=== PATIENT | female | born 1985 | race African-American/Black ===

== ENCOUNTER 2024-10-22 07:49 | Emergency (ER) | payer MEDICAID ==
[~2024-10-22] VITALS: Ht 165.1 cm; Wt 136.0 kg
[~2024-10-22 07:49] MED LIST: FERR1TAB25 PO; IBUP-779 PO; LABE200T9 PO; MULT-1116 PO
[2024-10-22 07:52] VITALS: O2SAT 99
[2024-10-22] MEDS: OXYCODONE HCL/ACETAMINOPHEN 5/325MG TABLET PO ONE (08:42)
[2024-10-22] MEDS ORDERED: TOPUD PO (10:09)
[2024-10-22 10:47] LABS: BASOPHILS % 1.2 % (0.0-2.0); DIFFERENTIAL COMMENT 0; EOSINOPHILS % 3.5 % (0.0-5.0); HEMATOCRIT. 37.8 % (36.0-48.0); HEMOGLOBIN. 11.9 g/dL (12.0-16.0); LYMPHOCYTES % 38.8 % (20.0-50.0); MEAN CORPUSCULAR HEMOGLOBIN 24.5 pg (28.0-32.0); MEAN CORPUSCULAR HGB CONC 31.4 g/dL (31.0-37.0); MEAN CORPUSCULAR VOLUME 78.3 fL (81.0-99.0); MONOCYTES % 7.1 % (2.0-8.0); NEUTROPHILS % 49.4 % (40.0-76.0); PLATELET 260 x1000/uL (130-400); RED BLOOD CELL COUNT 4.83 mill/uL (4.2-5.4); RED CELL DISTRIBUTION WIDTH 14.3 % (11.6-14.6); WHITE BLOOD COUNT 5.9 x1000/uL (4.5-11.0)
[2024-10-22 10:55] LABS: CHLORIDE 105 mEq/L (98-107); SODIUM 139 mEq/L (136-145)
[2024-10-22 10:56] LABS: CARBON DIOXIDE 30 mEq/L (21-32)
[2024-10-22 10:57] LABS: CALCIUM 8.8 mg/dL (8.7-10.4)
[2024-10-22 11:01] LABS: CREATININE 0.6 mg/dL (0.6-1.0); GLUCOSE 100 mg/dL (70-105); UREA NITROGEN BLOOD 10 mg/dL (9-23)
[2024-10-22] MEDS ORDERED: MAGNESIUM/ALUMINUM HYDROXIDE/SIMETHICONE 30ML UDC PO PRN (14:00)
[2024-10-22] MEDS ORDERED: CLONIDINE 0.1MG TABLET PO PRN (14:00)
[2024-10-22] MEDS ORDERED: ACETAMINOPHEN 325MG TABLET PO PRN ×2 (14:00)
[2024-10-22] MEDS ORDERED: ONDANSETRON HCL 4MG/2ML INJ IV PRN (14:00)
[2024-10-22] MEDS ORDERED: IBUPROFEN 400MG TABLET PO PRN (14:00)
[2024-10-22] MEDS ORDERED: DOCUSATE SODIUM 100MG CAPSULE PO PRN (14:00)
[2024-10-22] MEDS ORDERED: IPRATROPIUM/ALBUTEROL 0.5-3(2.5)MG/3ML NEB HHN PRN (14:00)
[2024-10-22] MEDS ORDERED: GUAIFENESIN 200MG/10ML SUGAR FREE UDC PO PRN (14:00)
[2024-10-22] MEDS ORDERED: ENOXAPARIN 30MG/0.3ML SYR SUBCUT SCH ×2 (15:00→18:00)
[2024-10-22 16:39] VITALS: BP 137/73; PULSE 61; RESP 16; TEMP 36.89184; O2SAT 100
[2024-10-22 16:55] LABS: CLARITY URINE CLEAR (CLEAR); COLOR URINE YELLOW (YELLOW); GLUCOSE URINE NEGATIVE (NEGATIVE); KETONES URINE NEGATIVE (NEGATIVE); LEUKOCYTE ESTERASE URINE NEGATIVE (NEGATIVE); NITRITE URINE NEGATIVE (NEGATIVE); OCCULT BLOOD URINE NEGATIVE (NEGATIVE); PH URINE 6.5 (4.5-8.0); PROTEIN URINE NEGATIVE (NEGATIVE); SPECIFIC GRAVITY URINE 1.003 (1.005-1.030); UROBILINOGEN URINE 0.2 E.U./dL (0.2-1.0)
[2024-10-22] MEDS ORDERED: FERROUS SULFATE 325MG TABLET PO SCH (17:00)
[2024-10-22 17:03] LABS: *AMPHETAMINES SCREEN URINE NEGATIVE (NEGATIVE); *BARBITURATES SCREEN URINE NEGATIVE (NEGATIVE); *BENZODIAZEPINES SCREEN URINE NEGATIVE (NEGATIVE); *COCAINE SCREEN URINE NEGATIVE (NEGATIVE); CANNABINOID URINE SCREEN NEGATIVE (NEGATIVE); ECSTASY MDMA SCREEN URINE NEGATIVE (NEGATIVE); METHADONE URINE SCREEN NEGATIVE (NEGATIVE); OPIATES URINE SCREEN NEGATIVE (NEGATIVE); PHENCYCLIDINE URINE SCREEN NEGATIVE (NEGATIVE)
== END 2024-10-22 14:50 | disposition left against medical advice (07) ==
LOC: ER 07:54 → EDBEDREQ 10:22 → ER 14:50
DX: M25.562 Pain in left knee (principal); J45.909 Unspecified asthma, uncomplicated; I10 Essential (primary) hypertension; Z88.1 Allergy status to other antibiotic agents; Z90.89 Acquired absence of other organs
CPT/HCPCS: 36415; 73502; 73552; 80048; 80305; 81003; 81025; 85025; 99285; A4606